=== PATIENT | male | born 1960 | race Caucasian/White ===

== ENCOUNTER → 2017-09-18 | Outpatient (CLI) | payer BC ==
[~2017-09-18] MED LIST: ASCA500; ASPEC325 PO; CHOLTAB3 PO; CLC100 PO; CLR10 PO; DEXT20TA2 PO; FLUT0.0529 INH; FLUT0.15 NAE; LISI-461 PO; LISI-787 PO; MELO-84 PO; MELO15TA3 PO; MULT-506 PO; OMEP10CA2 PO; PANT40TA PO; [UNRECOGNIZED DRUG - CODE] PO
[2017-09-18 11:54] LABS: BASO % 0.5 %; BASO ABS # 0.04 K/uL (0-0.2); EOS % 4.2 %; EOS ABS # 0.33 K/uL (0-0.5); HEMATOCRIT 46.7 % (42-52); HEMOGLOBIN 15.9 g/dL (14.0-18.0); IG# 0.03 K/uL (0.00-0.02); LYMPH % 26.6 %; LYMPH ABS # 2.11 K/uL (1.2-3.4); MEAN CELL VOLUME 90.7 fL (80-100); MEAN CORPUSCULAR HEMOGLOBIN 30.9 pg (25-34); MEAN PLATELET VOLUME 10.4 fL (7.4-10.4); MONO % 10.1 %; NEUT % 58.2 %; NEUT ABS # 4.61 K/uL (1.4-6.5); PLATELET COUNT 207 K/uL (130-400); RED CELL DISTRIBUTION WIDTH CV 13.8 % (11.5-14.5); RED CELL DISTRIBUTION WIDTH SD 45.7 fL (36.4-46.3); WHITE BLOOD COUNT 7.92 K/uL (4.8-10.8)
[2017-09-18 12:16] LABS: BLOOD UREA NITROGEN 17 mg/dl (7-18); CALCIUM 8.8 mg/dl (8.5-10.1); CARBON DIOXIDE 30 mmol/L (21-32); CREATININE 0.91 mg/dl (0.60-1.40); GLUCOSE 91 mg/dl (70-99); POTASSIUM 3.9 mmol/L (3.5-5.1); SODIUM 142 mmol/L (136-145)
== END | disposition home or self-care (01) ==
LOC: C.CPL 10:58
PROVIDERS: ATTEND Orthopaedic Surgery
DX: Z01.810 Encounter for preprocedural cardiovascular examination (principal); Z01.812 Encounter for preprocedural laboratory examination; M75.122 Complete rotator cuff tear or rupture of left shoulder, not specified as traumatic

== ENCOUNTER → 2017-10-14 | Day surgery (SDC) | payer BC ==
[2017-09-23 09:28] VITALS: Ht 177.8 cm; Wt 120.5 kg
[~2017-10-14] VITALS: Ht 177.8 cm; Wt 120.5 kg
[~2017-10-14] MED LIST changes: -ASCA500; -ASPEC325 PO; +ATROPINE SULFATE 0.1 MG/ML 5ML SYR IV PRN; +BUPIVACAINE 0.25% 30 ML VIAL ONE; +CEFAZOLIN 3000MG IV PUSH 22.5 ML IV SCH; -CHOLTAB3 PO; -CLC100 PO; +DEXAMETHASONE SOD INJ 4 MG/ML VIAL ONE; +EpHEDrine SULFATE 50MG/5ML SYR ONE; +EpHEDrine SULFATE INJ 50 MG/ML AMP IV PRN; +EpINEphrine INJ 1MG/ML AMP 1 MG/ML AMP ONE; +FENTANYL CITRATE INJ 50 MCG/1 ML 2 ML VIAL IV PRN; +FENTANYL CITRATE INJ 50 MCG/1 ML 2 ML VIAL ONE; -FLUT0.0529 INH; +KETO10TA PO; +KETOROLAC TROMETHAMINE 30 MG/ML VIAL IV. PRN; +LABETALOL HCL IV 5 MG/ML 20ML IV ONE; +LABETALOL HCL IV 5 MG/ML 20ML IV PRN; +LACTATED RINGER'S 1000ML 1,000 ML IV SCH; +LIDOCAINE HCL 2% 2 ML VIAL (20MG/ML) ONE; -LISI-461 PO; -MELO15TA3 PO; +MIDAZOLAM HCL 1 MG/ML 2ML VIAL ONE; -MULT-506 PO; +NEOSTIGMINE METHYLSULFATE 5 MG/5 ML SYR ONE; +NURSING VERBAL MED ORDER ONE; -OMEP10CA2 PO; +ONDANSETRON INJ 2 MG/ML 2 ML VIAL IV PRN; +ONDANSETRON INJ 2 MG/ML 2 ML VIAL ONE; +OXYC-57 PO; +OXYCODONE/ACETAMINOPHEN 5-325 TAB PO PRN; +PHENYLEPHRINE HCL INJ 10 MG/ML VIAL ONE; +PROMETHAZINE HCL INJ 25 MG/ML 1 ML VIAL ONE; +PROPOFOL IV EMULSION 10 MG/ML 20 ML VIAL IV ONE; +ROCURONIUM BROMIDE 10 MG/ML 5 ML VIAL IV ONE; +ROPIVACAINE 0.5% 5 MG/ML 30 ML VIAL ONE; +SCOPOLAMINE 1.5 MG TDSY TD ONE; +SODIUM CHLORIDE 0.9% 1000ML 1,000 ML IV SCH; +SODIUM CHLORIDE 0.9% INJ 10 ML VIAL ONE
--- NOTE | 2017-10-14 10:28 | History & Physical Bridge Note ---
H&P Re-Evaluation Bridge Note: I have examined the patient, reviewed the History & Physical and in the interval since the performance of the History & Physical I have noted the following changes of clinical significance: No changes noted
--- NOTE | 2017-10-14 13:17 | [facility] Post Operative Brief Note ---
Immediate Operative Summary Operative Date Oct 14, 2017. Pre-Operative Diagnosis Left Shoulder Full Thickness Rotator Cuff Tear Post-Operative Diagnosis Same Procedure(s) Performed Left Shoulder Arthroscopy, Acromioplasty, Massive Rotator Cuff Repair, Arthroscopic Bicep Tenodesis Surgeon Dr. Rocio Lynne [employer] Supervisor Surgeon(s) Mary Quintero PA-C Estimated Blood Loss 5 cc Findings Consistent with Post-Op Diagnosis Specimens None Anesthesia Type General Regional Complication(s) none Disposition Disposition: Recovery Room / PACU
--- NOTE | 2017-10-14 13:33 | Discharge Instructions-SurgCtr ---
Discharge Instructions Date of Service Oct 14, 2017. Visit Reason for Visit: Left Shoulder Full Thickness Rotator Cuff Tear Discharge Discharge Diagnosis / Problem: SAME ABOVE Discharge Goals Goal(s): Decrease discomfort, Improve function Activity Recommendations Activity Limitations: as noted below Lifting Limitations: until after follow-up appointment Exercise/Sports Limitations: until after follow-up appointment Shower/Bathe: tomorrow Anesthesia . Post Anesthesia Instructions: If you have had General Anesthesia or IV Sedation: * Do not drive today. * Resume driving when surgeon permits. * Do not make important decisions or sign legal documents today. * Call surgeon for: 1. Temperature elevations greater than 101 degrees F. 2. Uncontrollable pain. 3. Excessive bleeding. 4. Persistent nausea and vomiting. 5. Medication intolerance (nausea, vomiting or rash). * For nausea and vomiting use only clear liquids such as: tea, soda, bouillon until nausea subsides, then gradually increase diet as tolerated. * If you have any concerns or questions, call your surgeon's office. If physician is unavailable and it is an emergency, call 911 or go to the nearest emergency room. . Instructions / Follow-Up Instructions / Follow-Up MEDICATIONS: * Resume previous medications unless instructed otherwise by your surgeon. * Always take pain medication on a full stomach or with food to avoid upset stomach. * Do not drink alcohol or drive while taking narcotics. * Ibuprofen or Tylenol may be taken if narcotic not needed. SPECIAL CARE INSTRUCTIONS: __ None _X_ Keep extremity elevated and iced x 48 hours; apply ice 20-30 minutes 8-10 times/day. May remove at night. __ Sling __24 hrs/day __ Remove at night _X_ Shoulder Immobilizer (MAY REMOVE AFTER 48 HOURS ONLY TO SHOWER AND FOR THERAPY) _X_ 24 hrs/day __ Remove at night _X_ Dressing __ Maintain until seen in office, may shower with plastic over site _X_ Remove dressings in 24-48 hours and then may shower _X_ Cover incisions with band-aids after showering __ Do not remove steri-strips Call physician if chills or temperature rises above 102 degrees or pain unrelieved by prescribed pain medications at . . Diet Recommendations Home Diet: no limitations Fluid Restriction: None Procedures Procedures Performed: Left Shoulder Arthroscopy, Acromioplasty, Massive Rotator Cuff Repair, Arthroscopic Bicep Tenodesis Pending Studies Studies pending at discharge: no Work Instructions Return To Work: after follow-up Lifting Limitations: NO LIFTING WITH LEFT ARM Medical Emergencies . Who to Call and When: Medical Emergencies: If at any time you feel your situation is an emergency, please call 911 immediately. . Non-Emergent Contact Non-Emergency issues call your: Primary Care Provider Call Non-Emergent contact if: you have a fever, temperature is above 101.5 . . "Provider Documentation" section prepared by David Quintero. .
[2017-10-14 15:28] VITALS: TEMP 36.3
[2017-10-14 15:50] VITALS: BP 131/89; PULSE 95; O2SAT 92
--- NOTE | 2017-10-14 15:54 | Anesthesia Progress Nt - [facility] ---
Anesthesia Post Op Note Date & Time Oct 14, 2017 at 15:53 Vital Signs Pain Intensity: 4 Vital Signs Past 12 Hours Date Time Temp Pulse Resp B/P (MAP) Pulse Ox O2 Delivery O2 Flow Rate FiO2 10/14/17 15:50 95 16 131/89 (103) 92 Room Air 10/14/17 15:28 36.3 90 20 142/94 (110) 95 Room Air 10/14/17 15:06 36.2 94 Room Air 10/14/17 15:04 92 92 10/14/17 15:04 92 10/14/17 15:03 125/87 10/14/17 15:01 139/95 10/14/17 14:59 98 10 10/14/17 14:59 99 10 94 10/14/17 14:56 130/93 10/14/17 14:54 95 16 93 10/14/17 14:54 95 16 10/14/17 14:51 137/98 10/14/17 14:49 95 17 10/14/17 14:49 95 17 97 10/14/17 14:46 140/95 10/14/17 14:44 88 13 10/14/17 14:44 88 13 97 10/14/17 14:43 92 14 10/14/17 14:43 92 14 96 10/14/17 14:41 147/101 10/14/17 14:38 91 14 10/14/17 14:38 92 14 98 10/14/17 14:36 120/95 10/14/17 14:33 92 12 93 10/14/17 14:33 93 12 10/14/17 14:31 157/101 10/14/17 14:28 84 12 10/14/17 14:28 83 12 98 10/14/17 14:26 154/98 10/14/17 14:23 36.3 86 16 138/100 94 Room Air 10/14/17 14:23 90 17 10/14/17 14:23 90 17 97 10/14/17 14:22 87 13 10/14/17 14:22 87 13 98 10/14/17 14:21 138/100 10/14/17 14:17 85 15 98 10/14/17 14:17 84 15 10/14/17 14:16 153/99 10/14/17 14:12 86 17 4/5/18 14:12 86 17 98 4/5/18 14:11 145/101 4//18 14:07 85 17 4//18 14:07 85 17 99 4/5/18 14:06 142/103 //18 14:02 85 18 4//18 14:02 84 18 98 4//18 14:01 140/99 4//18 13:57 85 15 97 //18 13:57 84 15 //18 13:56 147/93 /18 13:52 89 21 /18 13:52 90 21 96 //18 13:51 141/90 /18 13:47 85 19 /18 13:47 85 19 96 /18 13:46 82 19 //18 13:46 82 19 135/90 96 /18 13:41 83 23 145/89 94 //18 13:41 83 23 /18 13:36 82 18 140/89 96 /18 13:36 82 18 /18 13:32 154/94 18 13:31 80 14 95 //18 13:31 80 14 /18 13:31 36.4 80 20 154/94 96 Diffusion Mask 10 10/14/17 11:21 121/84 //18 11:19 84 17 97 /18 11:19 84 4//18 11:16 96/83 /18 11:14 81 //18 11:14 81 23 98 /5/18 11:11 131/83 4/5/18 11:09 83 4//18 11:09 82 19 99 //18 11:06 136/87 //18 11:04 86 //18 11:04 88 15 98 /5/18 11:01 124/92 //18 10:59 81 4/5/18 10:59 81 18 97 /5/18 10:56 143/101 //18 10:54 86 21 97 /5/18 10:54 84 /5/18 10:53 151/106 //18 10:53 Oxymask 5 4//18 10:49 79 10/14/17 10:49 79 0 93 10/14/17 09:13 36.5 68 20 150/86 (107) 95 Room Air Notes Mental Status: alert / awake / arousable, participated in evaluation Pt Amnestic to Procedure: Yes Nausea / Vomiting: adequately controlled Pain: adequately controlled Airway Patency, RR, SpO2: stable & adequate BP & HR: stable & adequate Hydration State: stable & adequate Anesthetic Complications: no major complications apparent
--- NOTE | 2017-10-14 19:00 | OPERATIVE REPORT ---
DATE OF OPERATION: 10/14/2017 PREOPERATIVE DIAGNOSIS: Massive retracted left rotator cuff tear. POSTOPERATIVE DIAGNOSIS: Same. PROCEDURES: Left shoulder diagnostic arthroscopy with extensive debridement, acromioplasty, massive rotator cuff repair and arthroscopic biceps tenodesis. SURGEON: Dr. Chandler Lynne. MANAGER PERFORMANCE IMPROVEMENT: Godfrey Quintero PA-C, whose assistance was necessary for positioning the arm and helping with instrumentation. ANESTHESIA: General with a left interscalene nerve block. COMPLICATIONS: None. CONDITION: Stable to PACU. INDICATIONS: Ken is a pleasant 57-year-old male who has been having a greater than 3-year history of left shoulder pain. MRI and clinical examination were diagnostic for massive chronic retracted rotator cuff tear. After failing conservative treatment, he elected to undergo arthroscopy. DESCRIPTION OF PROCEDURE: On 10/14/2017, he arrived at [facility] for the above procedure. He was seen in the preoperative holding area and the operative extremity was identified and signed. He was given a preoperative antibiotic and a left interscalene nerve block. He was taken back to the operating room, laid on table in the supine position and put under general anesthesia. He was then put into the beach chair position. The left shoulder was prepped and draped in sterile fashion. Time-out was done and the patient's operative extremity was properly identified. A scope was introduced into the posterior portal. Diagnostic arthroscopy showed some areas of grade 4 chondral changes on the posterior aspect of the humerus. The glenoid cartilage was intact. The central and anterior portion of the humeral cartilage was intact. There was some fraying of the labrum. The biceps tendon was intact, but significantly frayed. The subscapularis was intact. There was a tear of the entire supraspinatus and infraspinatus tendons. The scope was put in the subacromial space. A lateral portal was made. A shaver was used to start an extensive debridement including complete subacromial and subdeltoid bursectomy. An ablator was used to tease the coracoacromial ligament off the undersurface of the acromion and a 5-0 ole was used to complete an acromioplasty of a Bigliani type 3 acromion. A shaver was used to remove any excess debris and time was spent freeing up the rotator cuff. An additional anterolateral portal was made and Madonna cannulas were placed in each lateral portals. A cuff grasper was used and I was able to mobilize the cuff to get greater than 70% footprint coverage. I felt this was adequate. The tissue quality was fair, but certainly not very robust. I did decide to do a repair over a superior capsular reconstruction. The greater tuberosity was then prepared with a ring curette and a microfracture. The rotator cuff was then fixed with an Arthrex SpeedBridge configuration using 3 medial row 4.75-mm BioComposite SwiveLock suture anchors loaded with FiberTapes. The tapes were passed through the tendon at the anticipator articular margin and A FiberTape from each anchor was brought down to 1 of 3 lateral row SwiveLock suture anchors. This gave a nice knotless SpeedBridge repair. The remaining stay sutures were tied across the anchor to each other on the medial row to help hold it down. Overall, I was able to get a fairly good coverage without too much tension. The long head of the biceps tendon was tagged with an Arthrex FiberLink and incorporated into the anterior medial anchor to complete an arthroscopic biceps tenodesis. Multiple pictures were taken. The scope was placed back into the glenohumeral joint. A shaver was used to remove any excess debris. The articular side of the rotator cuff had been restored. The stump of the biceps tendon was tenotomized. Arthroscopic instruments were removed from the shoulder. Portal sites were closed with 3-0 nylon. He was then placed in a soft dressing and an abduction arm sling. He was then extubated, transferred to a [facility] and taken to the postanesthesia care unit in stable condition. He tolerated the procedure well. I attest to the content of the Intraoperative Record and any orders documented therein. Any exception s are noted below.
== END | disposition home or self-care (01) ==
LOC: X.SURG 09:03
PROVIDERS: ATTEND Orthopaedic Surgery
DX: M75.102 Unspecified rotator cuff tear or rupture of left shoulder, not specified as traumatic (principal); I10 Essential (primary) hypertension; K21.9 Gastro-esophageal reflux disease without esophagitis; E66.9 Obesity, unspecified; Z68.38 Body mass index [BMI] 38.0-38.9, adult; Z88.6 Allergy status to analgesic agent; Z98.890 Other specified postprocedural states